=== PATIENT | female | born 1950 | race Caucasian/White ===

== ENCOUNTER 2016-08-31 05:26 | Day surgery (SDC) | payer OTHER ==
[2016-08-30 10:22] VITALS: BMI 33.9
--- NOTE | 2016-08-30 16:34 | HP ---
DATE OF ADMISSION: 08/31/2016 This 66-year-old patient is admitted for elective cataract surgery of the left eye. The patient has had progressive deterioration of vision in both eyes. The patient also has a history of insulin-de pendent diabetes mellitus, systemic hypertension, hypercholesterolemia and depression. The patient's current medication includes 1. Albuterol. 2. Amlodipine. 3. Benazepril. 4. Aspirin 81 mg (discontinued 1 week prior to surgery). 5. Atorvastatin. 6. Flonase. 7. Omeprazole. 8. Sertraline. 9. Metformin. ALLERGIES: THERE ARE NO KNOWN ALLERGIES. On examination visual acuity best corrected is 20/40 in the right eye and 20/50 in the left eye. Ap planation tonometry is 20 mmHg. Examination of the retina is within normal limits without evidence of diabetic retinopathy. DIAGNOSIS: Cataract, left eye. PLAN: Cataract extraction with lens implant, left eye. The risks and alternatives to the surgery simental ve been discussed with the patient as well as the hope for improvement of visual acuity leading to a greater ability to perform activities of daily living. PROCEDURE: The patient understands this and agrees to proceed with surgery. Dictated By: JÚNIOR MARTIN/SWAPNIL Conf#: [id number] DID#: [id number]
[2016-08-31] VITALS (13 sets, daily range): BP systolic 143–175; BP diastolic 61–92; PULSE 72–84; RESP 12–18; Ht 152.4 cm; Wt 82.3 kg
[~2016-08-31] VITALS: Ht 152.4 cm; Wt 82.3 kg
[2016-08-31] MEDS ORDERED: LIDOCAINE 4% (MPF) 5 ML INJ ONE (06:26)
[2016-08-31] MEDS ORDERED: CEFAZOLIN 1 GM INJ ONE (06:26)
[2016-08-31] MEDS ORDERED: CARBACHOL 0.01% 1.5 ML OPH INJ ONE (06:26)
[2016-08-31] MEDS ORDERED: GENTAMICIN 80 MG INJ ONE (06:27)
[2016-08-31] MEDS ORDERED: EPINEPHrine 1 MG INJ ONE (06:27)
[2016-08-31] MEDS ORDERED: DEXAMETHASONE 4 MG/ML 1 ML INJ ONE (06:27)
[2016-08-31] MEDS ORDERED: HYALURONATE/CHONDROITIN 1ML OPH INJ ONE (06:27)
[2016-08-31] MEDS ORDERED: LORA10TA3 PO (06:55)
[2016-08-31] MEDS ORDERED: ATOR40TA68 PO (06:55)
[2016-08-31] MEDS ORDERED: SERT50TA6 PO (06:55)
[2016-08-31] MEDS ORDERED: ASPI-535 PO (06:55)
[2016-08-31] MEDS ORDERED: OMEP20CA16 PO (06:55)
[2016-08-31] MEDS ORDERED: AMLO-147 PO (06:55)
[2016-08-31] MEDS ORDERED: ALBUTEROL INH (06:55)
[2016-08-31] MEDS ORDERED: BENA40TA41 PO (06:55)
[2016-08-31] MEDS ORDERED: METF500T4 PO (06:55)
[2016-08-31] MEDS ORDERED: DICLOFENAC 0.1% 2.5 ML OPH OPER SCH (07:00)
[2016-08-31] MEDS ORDERED: CIPROFLOXACIN 0.3% 2.5 ML OPH OPER SCH (07:00)
[2016-08-31] MEDS ORDERED: CEFAZOLIN 1 GM INJ INJ ONE (07:00)
[2016-08-31] MEDS ORDERED: CARBACHOL 0.01% 1.5 ML OPH INJ IO ONE (07:00)
[2016-08-31] MEDS ORDERED: HYALURONATE/CHONDROITIN 1ML OPH INJ IO ONE (07:00)
[2016-08-31] MEDS ORDERED: CYCLOPENTOLATE/PHENYLEPH 2 ML OPH OPER SCH (07:00)
[2016-08-31] MEDS ORDERED: TROPICAMIDE 1% 2 ML OPH OPER SCH (07:00)
[2016-08-31] MEDS ORDERED: DEXAMETHASONE 4 MG/ML 1 ML INJ INJ ONE (07:00)
[2016-08-31] MEDS ORDERED: LIDOCAINE 1% (MPF) 30 ML INJ ONE (07:04)
[2016-08-31] MEDS ORDERED: PROPOFOL 20 ML ONE (07:05)
[2016-08-31] MEDS ORDERED: hydrALAzine 20 MG INJ ONE (07:37)
[2016-08-31] MEDS ORDERED: FENTAnyl 50 MCG/ML VIAL IV PRN ×2 (08:00)
[2016-08-31] MEDS ORDERED: MEPERIDINE 25 MG INJ IV PRN (08:00)
[2016-08-31] MEDS ORDERED: LABETALOL HCL 20MG INJ IV PRN (08:00)
[2016-08-31] MEDS ORDERED: hydrALAzine 20 MG INJ IV PRN (08:00)
[2016-08-31] MEDS ORDERED: ONDANSETRON 4 MG INJ IV PRN (08:00)
[2016-08-31] MEDS ORDERED: HYDROmorphONE (0.2 MG/ML) 10ML SYG IV PRN ×3 (08:00)
--- NOTE | 2016-08-31 08:21 | OPR ---
DATE OF OPERATION: 08/31/2016 PREOPERATIVE DIAGNOSIS: Cataract, left eye. POSTOPERATIVE DIAGNOSIS: Cataract, left eye. SURGEON: Júnior Cyr MD OUTSOLE ROUNDER: ANESTHESIA: Local standby. ANESTHESIOLOGIST: Dr. Maradiaga OPERATION: Cataract extraction with lens implant, left eye. PROCEDURE: The patient was brought to the operating room and placed on the table with an IV in plac e and the patient attached to an electrophysiology technologist. Oxygen was given via face mask. After some intravenous sedation was administered, local anesthesia was given using Xylocaine 2% with epinephrine, mixed with Marcaine 0.5%. This was given in a lid block and retrobulbar injection. The patient was then prepped and draped in the usual sterile manner. A wire lid speculum was inserted between the lids of the left eye. A Superblade was used to enter th e anterior chamber at the corneoscleral limbus at the 10:30 o'clock position. A separate incision wa s made using a 3.0-mm keratome which entered the corneoscleral junction at the 12 o'clock position. Through this 3-mm opening, an irrigating cystitome was introduced into the anterior chamber. The gokul mber was filled with Viscoat and an anterior capsulotomy was performed. Balanced salt solution was t hen used for hydrodissection of the lens. A phacoemulsification handpiece was then brought into the field and introduced into the anterior chamber. The lens nucleus was emulsified using a deep groove and cracking the nucleus into quadrants. Following this, each quadrant was aspirated and emulsified at the pupillary margin. After this was completed, the irrigation/aspiration handpiece was brought to the field, introduced i nto the posterior chamber, and the lens cortical material was removed. When this was completed, maximino tional Viscoat was injected into the anterior and posterior chambers. The 3-mm opening had its internal lips enlarged, and then the posterior chamber intraocular lens nilson suring 19.0 diopters (Bausch and Cadee LI61AO) was then injected into the posterior chamb er using the lens injector system. After the leading haptic was introduced into the capsular bag and the lens optic was present in the center of the eye, the injector was removed and the trailing hapt ic was grasped with non-toothed forceps and introduced into the capsular fold superiorly. A Sinskey hook was then used to rotate the intraocular lens so that the lips were oriented in the horizontal m eridian. One 10-0 nylon suture was placed across the wound. Prior to tying, the irrigation/aspiration handpiece was reintroduced into the anterior chamber to re move the Viscoat. Miochol was instilled to constrict the pupil, and then the 10-0 nylon suture was t ied. The ends were cut short and then the knot was buried. Then, 0.5 mL of dexamethasone and 0.5 mL of Ancef were injected into the sub-Tenon space in the infe rior fornix. Ciloxan drops were then placed on the surface of the eye. The speculum was removed and a patch was applied. The patient then left the operating room in satisfactory condition. Dictated By: JÚNIOR MARTIN/SWAPNIL Conf#: [id number] DID#: [id number]
== END 2016-08-31 09:18 | disposition home or self-care (01) ==
LOC: SDS 05:26
PROVIDERS: ATTEND Ophthalmology
DX: H26.9 Unspecified cataract (principal); E11.9 Type 2 diabetes mellitus without complications; I10 Essential (primary) hypertension; E78.5 Hyperlipidemia, unspecified; J45.909 Unspecified asthma, uncomplicated; E66.01 Morbid (severe) obesity due to excess calories; Z68.35 Body mass index [BMI] 35.0-35.9, adult
CPT/HCPCS: 66984; 82962; J0171; J0360; J0690; J1100; J1580; J2405; V2632; Z7512; Z7610